=== PATIENT | female | born 1995 | race Caucasian/White ===

== ENCOUNTER 2022-06-12 14:17 | Inpatient (IN) | payer MEDICAID ==
[~2022-06-12] VITALS: Ht 162.6 cm; Wt 77.7 kg
[2022-06-12 15:32] LABS: BASOPHILS % 0.4 % (0.0-2.0); EOSINOPHILS % 1.3 % (0.0-5.0); HEMATOCRIT. 37.4 % (36.0-48.0); HEMOGLOBIN. 12.6 g/dL (12.0-16.0); MEAN CORPUSCULAR HEMOGLOBIN 29.3 pg (28.0-32.0); MEAN PLATELET VOLUME 7.8 fl (7.4-10.4); MONOCYTES % 7.3 % (2.0-8.0); PLATELET 341 x1000/uL (130-400); RED CELL DISTRIBUTION WIDTH 14.4 % (11.6-14.6)
[2022-06-12 15:42] LABS: CHLORIDE 107 mEq/L (98-107)
[2022-06-12 16:07] LABS: B-HCG QUANTITATIVE 1992 mIU/mL (<3)
[2022-06-12 20:47] LABS: CLARITY URINE CLEAR (CLEAR); COLOR URINE YELLOW (YELLOW); KETONES URINE NEGATIVE (NEGATIVE); LEUKOCYTE ESTERASE URINE NEGATIVE (NEGATIVE); NITRITE URINE NEGATIVE (NEGATIVE); OCCULT BLOOD URINE 3+ (NEGATIVE); PH URINE 5.5 (4.5-8.0); PROTEIN URINE TRACE (NEGATIVE); SPECIFIC GRAVITY URINE 1.034 (1.005-1.030)
[2022-06-12] MEDS ORDERED: OXYTOCIN 30 UNITS/500ML NS PMX 500 ML IV NR (22:00)
[2022-06-13] VITALS: BP 101/60
[2022-06-13 04:00] VITALS: BP 112/67
[2022-06-13 04:11] VITALS: BP 101/60
[2022-06-13 06:28] LABS: BASOPHILS % 0.5 % (0.0-2.0); EOSINOPHILS % 1.1 % (0.0-5.0); HEMATOCRIT. 33.8 % (36.0-48.0); HEMOGLOBIN. 11.8 g/dL (12.0-16.0); LYMPHOCYTES % 31.8 % (20.0-50.0); MEAN CORPUSCULAR HEMOGLOBIN 29.9 pg (28.0-32.0); MEAN CORPUSCULAR VOLUME 85.5 fL (81.0-99.0); MEAN PLATELET VOLUME 7.9 fl (7.4-10.4); MONOCYTES % 6.7 % (2.0-8.0); NEUTROPHILS % 59.9 % (40.0-76.0); PLATELET 292 x1000/uL (130-400); RED BLOOD CELL COUNT 3.95 mill/uL (4.2-5.4); RED CELL DISTRIBUTION WIDTH 14.5 % (11.6-14.6)
[2022-06-13 06:39] LABS: CHLORIDE 110 mEq/L (98-107)
[2022-06-13] MEDS ORDERED: CEFAZOLIN SODIUM 1000MG/VIAL ONE (07:05)
[2022-06-13] MEDS ORDERED: PROPOFOL 200MG/20ML VIAL IV ONE (07:07)
[2022-06-13] MEDS ORDERED: MIDAZOLAM HCL 2 MG/2 ML VIAL ONE (07:08)
[2022-06-13] MEDS ORDERED: FENTANYL CITRATE/PF 50MCG/ML 2ML VIAL ONE (07:10)
[2022-06-13] MEDS ORDERED: DEXAMETHASONE 4MG/ML 1ML VIAL ONE (07:22)
[2022-06-13] MEDS ORDERED: ONDANSETRON HCL 4MG/2ML INJ ONE (07:22)
[2022-06-13] MEDS ORDERED: KETOROLAC 30MG/ML VIAL ONE (07:22)
[2022-06-13] MEDS ORDERED: SUCCINYLCHOLINE CHLORIDE 200MG/10ML IV ONE (07:27)
[2022-06-13] MEDS ORDERED: IBUPROFEN 600MG TABLET PO SCH (08:00)
[2022-06-13 11:03] VITALS: BP 95/56
== END 2022-06-13 12:00 | disposition home or self-care (01) | DRG 543 ==
LOC: ER 14:17 → MICUSO 22:57 → 6EST 06-13 01:03
PROVIDERS: ADMIT Obstetrics & Gynecology; ATTEND Obstetrics & Gynecology
PROC: 10D17ZZ Extraction of Products of Conception, Retained, Via Natural or Artificial Opening (ICD-10-PCS; principal; 2022-06-13)
DX: O03.4 Incomplete spontaneous abortion without complication (principal); N93.9 Abnormal uterine and vaginal bleeding, unspecified; O73.1 Retained portions of placenta and membranes, without hemorrhage
CPT/HCPCS: 36415; 76801; 80053; 81003; 84702; 85025; 86850; 86900; 87426; 88305; 99285; J0330; J0690; J1100; J1885; J2250; J2405; J2704; J3010; J2590